=== PATIENT | female | born 1980 | race Caucasian/White ===

== ENCOUNTER → 2020-06-29 | Outpatient (CLI) | payer BC ==
--- NOTE | 2020-06-29 17:31 | CONS ---
CONSULTATION DATE OF SERVICE: 06/29/2020 A 39-year-old lady who came to sleep center for possible obstructive sleep apnea- hypopnea syndrome. HISTORY OF PRESENT ILLNESS/SLEEP-WAKE EVALUATION: Patient usual sleep schedule on working days from 12 midnight until 6:30 - 6:45 am and on weekends from 1 to 2 a.m. until 10 to 11 am. No problems with falling asleep. No TV in bedroom. The patient sleeps in different position with snoring and multiple awakenings from sleep up to 5 times with possible changes of the breathing during sleep. No nocturia. In the morning, the patient wakes up tired, has problems with memory, concentration, irritability. Marlow Sleepiness Scale is 6. The patient may take one nap around 4 pm, does not feel refreshed after nap. PAST MEDICAL HISTORY: Positive for hypertension, hyperlipidemia, episodes of migraine, depression, asthma of exercise. PAST SURGICAL HISTORY: None. MEDICATIONS: Sprintec, topiramate, Pristiq, , Imitrex, Ventolin. SOCIAL HISTORY: Negative for smoking. Alcohol consumption, occasional. REVIEW OF SYSTEMS: Awakenings from sleep, feeling tiredness during the day. PHYSICAL EXAM: lady without distress, BP 146/97, HR 84, RR 15, height 5 foot 5.5 inches, weight 260.4 pounds. Body mass index 42.6, temperature 98.0, oxygen saturation at room air 96%. OROPHARYNX: Low position of soft palate, Mallampati 3. ABDOMEN: Obese. NECK: Supple, no JVD. Thyroid is not palpable. LUNGS: Clear to percussion and to auscultation. Good air exchange. No wheezing or rhonchi. HEART: S1, S2 regular. No murmurs, gallops, or rubs. EXTREMITIES: No clubbing or cyanosis. COSMETIC MANAGER: Awake, alert, and oriented X3. Cranial nerves 2 to 7 intact. There is no fasciculation or atrophy. noted. No focal deficits observed. IMPRESSION: 1. Snoring, multiple awakenings from sleep, low position of soft palate, wide neck, obstructive sleep apnea-hypopnea syndrome. 2. Obesity, body mass index 42.6. 3. History of hypertension. 4. Hyperlipidemia. 5. Migraine. 6. Depression. 7. Exercise-induced asthma. PLAN: 1. Home sleep apnea test. 2. Polysomnography for evaluation of patient's breathing during sleep. 3. CPAP/BiPAP titration if sleep study confirms obstructive sleep apnea-hypopnea syndrome. 4. Preferable position during sleep on the side. 5. No driving if patient feels any sleepiness. 6. I will see patient for follow up visit to explain results of testing and following plan. Thank you very much for referring this patient for consultation. Sincerely, Olegario Garzon MD, PhD, FAASM Diplomat of [employer] [facility] [place] MMODL / IJN: [id number] /
== END | disposition home or self-care (01) ==
LOC: SLEEP 14:18
PROVIDERS: ATTEND Internal Medicine
DX: G47.33 Obstructive sleep apnea (adult) (pediatric) (principal); G43.909 Migraine, unspecified, not intractable, without status migrainosus; E66.9 Obesity, unspecified; E78.5 Hyperlipidemia, unspecified; F32.9 Major depressive disorder, single episode, unspecified; J45.990 Exercise induced bronchospasm
CPT/HCPCS: 99211

== ENCOUNTER → 2023-08-25 | Outpatient (CLI) | payer BC ==
--- NOTE | 2023-08-25 07:40 | US ---
EXAMINATION TYPE: US gallbladder DATE OF EXAM: 08/25/2023 COMPARISON: NONE CLINICAL INDICATION: Female, 42 years old with history of R10.11 RIGHT UPPER QUADRANT PAIN; Intermitt ent RUQ pain x 1 year TECHNIQUE: Multiple sonographic images of the right upper quadrant are obtained. FINDINGS: EXAM MEASUREMENTS: Liver Length: 17.7 cm Gallbladder Wall: 0.30 cm CBD: 0.80 cm Right Kidney: 11.1 x 4.8 x 4.7 cm Pancreas: wnl Liver: Increased echogenicity Gallbladder: MARGIE, wall echo shadow; multiple stones Evidence for sonographic Can's sign: No CBD: Dilated Right Kidney: wnl IMPRESSION: 1. Hepatic steatosis. 2. Extensive cholelithiasis filling the gallbladder lumen. 3. No obstructive uropathy.
== END | disposition home or self-care (01) ==
LOC: RADUSWWP 07:00
PROVIDERS: ATTEND Family Medicine
DX: K76.0 Fatty (change of) liver, not elsewhere classified (principal); K80.20 Calculus of gallbladder without cholecystitis without obstruction; R10.11 Right upper quadrant pain
CPT/HCPCS: 76705

== ENCOUNTER → 2023-11-25 | Outpatient (CLI) | payer BC ==
--- NOTE | 2023-11-25 07:50 | US ---
EXAMINATION TYPE: US gallbladder DATE OF EXAM: 11/25/2023 COMPARISON: And 2322 CLINICAL INDICATION: Female, 42 years old with history of CHOLELITHIASIS K80.80; Packed GB 08/25, mccurdy s been on medication and special diet to try to dissolve stones TECHNIQUE: Multiple sonographic images of the right upper quadrant are obtained. FINDINGS: EXAM MEASUREMENTS: Liver Length: 16.7 cm Gallbladder Wall: 0.2 cm CBD: 0.8 cm Right Kidney: 9.9x5.1x5.6 cm NUISANCE WILDLIFE SPECIALIST NOTES: Pancreas: Tail obscured by overlying bowel gas Liver: upper limits Gallbladder: MARGIE sign, GB packed with stones, there does not appear to be any reduction in stone bur den Evidence for sonographic Can's sign: No CBD: shotgun sign, dilated Right Kidney: No hydronephrosis or masses seen exam limited by bowel and body habitus IMPRESSION: Gallbladder filled with gallstones. No obvious difference from prior ultrasound.
== END | disposition home or self-care (01) ==
LOC: RADUSWWP 07:04
PROVIDERS: ATTEND Family Medicine
DX: K80.80 Other cholelithiasis without obstruction (principal)
CPT/HCPCS: 76705

== ENCOUNTER 2024-01-13 23:50 | Observation (INO) | payer BC ==
--- NOTE | 2024-01-14 01:14 | ED ---
General Adult HPI - General Chief complaint: Abdominal Pain Stated complaint: ABD Pain Time Seen by Provider: 01/14/24 00:10 Source: patient, RN notes reviewed, old records reviewed Mode of arrival: ambulatory Limitations: no limitations - History of Present Illness Initial comments: 43-year-old female presenting for evaluation of right-sided and epigastric abdominal pain. Patient states she has known history of gallstones. She is awaiting a surgical evaluation regarding this. Patient states that today for lunch she had pizza and ice cream and several hours later developed epigastric and right upper quadrant pain. No fever. She has had nausea without vomiting. - Related Data Allergies Allergy/AdvReac Type Severity Reaction Status Date / Time cephalexin [From Keflex] AdvReac Rash/Hives Verified 01/14/24 00:08 Sulfa (Sulfonamide AdvReac Rash/Hives Verified 01/14/24 00:08 Antibiotics) Review of Systems ROS Statement: Those systems with pertinent positive or pertinent negative responses have been documented in the HPI. ROS Other: All systems not noted in ROS Statement are negative. Past Medical History Past Medical History: Asthma History of Any Multi-Drug Resistant Organisms: None Reported Past Surgical History: No Surgical Hx Reported Past Psychological History: Depression Smoking Status: Never smoker Past Alcohol Use History: Rare Past Drug Use History: None Reported General Exam Limitations: no limitations General appearance: alert, in no apparent distress Head exam: Present: atraumatic, normocephalic Eye exam: Present: normal appearance, PERRL ENT exam: Present: normal exam Neck exam: Present: normal inspection. Absent: tenderness, meningismus Respiratory exam: Present: normal lung sounds bilaterally. Absent: respiratory distress, wheezes Cardiovascular Exam: Present: regular rate, normal rhythm GI/Abdominal exam: Present: soft, tenderness (Epigastric and right upper quadrant). Absent: distended Extremities exam: Present: normal inspection, normal capillary refill. Absent: pedal edema Neurological exam: Present: alert, oriented X3, CN II-XII intact Psychiatric exam: Present: normal affect, normal mood Skin exam: Present: warm Course Vital Signs 01/14/24 00:06 Temperature 97.7 F Pulse Rate 71 Respiratory 18 Rate Blood Pressure 157/98 O2 Sat by Pulse 100 Oximetry Medical Decision Making - Medical Decision Making Was pt. sent in by a medical professional or institution (, PA, LIGHTOUT EXAMINER, urgent care, hospital, or skilled nursing...) When possible be specific @ -No Did you speak to anyone other than the patient for history (EMS, parent, family, police, friend...)? What history was obtained from this source @ -No Did you review nursing and triage notes (agree or disagree)? Why? @ -I reviewed and agree with nursing and triage notes Were old charts reviewed (outside hosp., previous admission, EMS record, old EKG, old radiological studies, urgent care reports/EKG's, skilled nursing records)? Report findings @ -No old charts were reviewed Differential Diagnosis (chest pain, altered mental status, abdominal pain women, abdominal pain men, vaginal bleeding, weakness, fever, dyspnea, syncope, headache, dizziness, GI bleed, back pain, seizure, CVA, palpatations, mental health, musculoskeletal)? @Differential Abdominal Pain Women: Appendicitis, Cholecystitis, diverticulosis, ischemic bowel, pancreatitis, hepatitis, UTI, gastroenteritis, AAA, incarcerated hernia, bowel obstruction, constipation, inflammatory bowel, hepatitis, peptic ulcer disease, splenic infarction, perforated viscus, vulvitis, ovarian torsion, PID, kidney stone, placenta abruption, this is not meant to be an all-inclusive list EKG interpreted by me (3pts min.). @ -As above X-rays interpreted by me (1pt min.). @ -None done CT interpreted by me (1pt min.). @ -None done U/S interpreted by me (1pt. min.). @ -[Ultrasound right upper quadrant shows multiple gallstones, pericholecystic fluid, thickened gallbladder wall. What testing was considered but not performed or refused? (CT, X-rays, U/S, labs)? Why? @ -None What meds were considered but not given or refused? Why? @ -None Did you discuss the management of the patient with other professionals (professionals i.e. , PA, LIGHTOUT EXAMINER, lab, RT, psych nurse, group social worker, install and repair technician, teacher, security patrol officer, caseworker intake)? Give summary @ -Dr. Espino Was smoking cessation discussed for >3mins.? @ -No Was critical care preformed (if so, how long)? @ -No Were there social determinants of health that impacted care today? How? (Homelessness, low income, unemployed, alcoholism, drug addiction, transportation, low edu. Level, literacy, decrease access to med. care, long-term, rehab)? @ -No Was there de-escalation of care discussed even if they declined (Discuss DNR or withdrawal of care, Hospice)? DNR status @ -No What co-morbidities impacted this encounter? (DM, HTN, Smoking, COPD, CAD, Canc er, CVA, ARF, Chemo, Hep., AIDS, mental health diagnosis, sleep apnea, morbid obesity)? @ -None Was patient admitted / discharged? Hospital course, mention meds given and route, prescriptions, significant lab abnormalities, going to OR and other pertinent info. @ -43-year-old female with known gallstones presenting with right upper quadrant pain. Patient is afebrile with stable vitals. She has epigastric and right upper quadrant tenderness on exam. Ultrasound shows multiple gallstones, pericholecystic fluid and gallbladder wall thickening consistent with acute cholecystitis. She has a normal CBC without leukocytosis. Normal CMP, normal liver enzymes, normal bilirubin, negative lipase. Patient started on antibiotics in the emergency department. She will be admitted for surgical man agement of acute cholecystitis. Undiagnosed new problem with uncertain prognosis? @ -No Drug Therapy requiring intensive monitoring for toxicity (Heparin, Nitro, Insulin, Cardizem)? @ -No Were any procedures done? @ -No Diagnosis/symptom? @ -Acute cholecystitis Acute, or Chronic, or Acute on Chronic? @ -[Acute Uncomplicated (without systemic symptoms) or Complicated (systemic symptoms)? @ -Complicated Side effects of treatment? @ -[No Exacerbation, Progression, or Severe Exacerbation? @ -No Poses a threat to life or bodily function? How? (Chest pain, [place], [place], pneumonia, PE, COPD, DKA, ARF, appy, cholecystitis, CVA, Diverticulitis, Homicidal, Suicidal, threat to staff... and all critical care pts) @ -Yes, sepsis - Lab Data Result diagrams: 01/14/24 01:17 01/14/24 01:17 Lab Results 01/14/24 01/14/24 01/14/24 Range/Units 01:17 01:17 01:17 WBC 9.2 (3.8-10.6) k/uL RBC 4.83 (3.80-5.40) m/uL Hgb 14.3 (11.4-16.0) gm/dL Hct 43.6 (34.0-46.0) % MCV 90.1 (80.0-100.0) fL MCH 29.5 (25.0-35.0) pg MCHC 32.8 (31.0-37.0) g/dL RDW 12.6 (11.5-15.5) % Plt Count 313 (150-450) k/uL MPV 7.8 Neutrophils % 73 % Lymphocytes % 22 % Monocytes % 3 % Eosinophils % 1 % Basophils % 1 % Neutrophils # 6.7 (1.3-7.7) k/uL Lymphocytes # 2.0 (1.0-4.8) k/uL Monocytes # 0.3 (0-1.0) k/uL Eosinophils # 0.1 (0-0.7) k/uL Basophils # 0.1 (0-0.2) k/uL PT 9.9 L (10.0-12.5) sec INR 0.9 (<1.2) APTT 26.0 (22.0-30.0) sec Sodium (137-145) mmol/L Potassium (3.5-5.1) mmol/L Chloride (98-107) mmol/L Carbon Dioxide (22-30) mmol/L Anion Gap mmol/L BUN (7-17) mg/dL Creatinine (0.52-1.04) mg/dL Est GFR (CKD-EPI)AfAm (>60 ml/min/1.73 sqM) Est GFR (CKD-EPI)NonAf (>60 ml/min/1.73 sqM) Glucose (74-99) mg/dL Plasma Lactic Acid Jacques (0.7-2.0) mmol/L Calcium (8.4-10.2) mg/dL Total Bilirubin (0.2-1.3) mg/dL AST (14-36) U/L ALT (4-34) U/L Alkaline Phosphatase (38-126) U/L Total Protein (6.3-8.2) g/dL Albumin (3.5-5.0) g/dL Amylase (30-110) U/L Lipase (23-300) U/L Urine Color Colorless Urine Appearance Turbid H (Clear) Urine pH 7.5 (5.0-8.0) Ur Specific [place] 1.019 (1.001-1.035) Urine Protein Negative (Negative) Urine Glucose (UA) Negative (Negative) Urine Ketones 1+ H (Negative) Urine Blood Negative (Negative) Urine Nitrite Negative (Negative) Urine Bilirubin Negative (Negative) Urine Urobilinogen <2.0 (<2.0) mg/dL Ur Leukocyte Esterase Negative (Negative) Urine RBC 2 (0-5) /hpf Urine WBC 1 (0-5) /hpf Ur Squamous Epith Cells 3 (0-4) /hpf Amorphous Sediment Moderate H (None) /hpf Urine Mucus Rare H (None) /hpf 01/14/24 01/14/24 Range/Units 01:17 01:17 WBC (3.8-10.6) k/uL RBC (3.80-5.40) m/uL Hgb (11.4-16.0) gm/dL Hct (34.0-46.0) % MCV (80.0-100.0) fL MCH (25.0-35.0) pg MCHC (31.0-37.0) g/dL RDW (11.5-15.5) % Plt Count (150-450) k/uL MPV Neutrophils % % Lymphocytes % % Monocytes % % Eosinophils % % Basophils % % Neutrophils # (1.3-7.7) k/uL Lymphocytes # (1.0-4.8) k/uL Monocytes # (0-1.0) k/uL Eosinophils # (0-0.7) k/uL Basophils # (0-0.2) k/uL PT (10.0-12.5) sec INR (<1.2) APTT (22.0-30.0) sec Sodium 136 L (137-145) mmol/L Potassium 4.0 (3.5-5.1) mmol/L Chloride 104 (98-107) mmol/L Carbon Dioxide 21 L (22-30) mmol/L Anion Gap 11 mmol/L BUN 11 (7-17) mg/dL Creatinine 0.76 (0.52-1.04) mg/dL Est GFR (CKD-EPI)AfAm >90 (>60 ml/min/1.73 sqM) Est GFR (CKD-EPI)NonAf >90 (>60 ml/min/1.73 sqM) Glucose 119 H (74-99) mg/dL Plasma Lactic Acid Jacques 1.8 (0.7-2.0) mmol/L Calcium 9.2 (8.4-10.2) mg/dL Total Bilirubin 0.4 (0.2-1.3) mg/dL AST 27 (14-36) U/L ALT 18 (4-34) U/L Alkaline Phosphatase 89 (38-126) U/L Total Protein 7.2 (6.3-8.2) g/dL Albumin 4.2 (3.5-5.0) g/dL Amylase 62 (30-110) U/L Lipase 102 (23-300) U/L Urine Color Urine Appearance (Clear) Urine pH (5.0-8.0) Ur Specific [place] (1.001-1.035) Urine Protein (Negative) Urine Glucose (UA) (Negative) Urine Ketones (Negative) Urine Blood (Negative) Urine Nitrite (Negative) Urine Bilirubin (Negative) Urine Urobilinogen (<2.0) mg/dL Ur Leukocyte Esterase (Negative) Urine RBC (0-5) /hpf Urine WBC (0-5) /hpf Ur Squamous Epith Cells (0-4) /hpf Amorphous Sediment (None) /hpf Urine Mucus (None) /hpf Disposition Clinical Impression: Acute cholecystitis Disposition: ADMITTED IP TO THIS HOSP Condition: Stable Is patient prescribed a controlled substance at d/c from ED?: No Referrals: Jamee Anders MD [Primary Care Provider] - 1-2 days Time of Disposition: 02:02
[2024-01-14] MEDS: ONDANSETRON 4 MG/2 ML VIAL IVP STA (01:20)
[2024-01-14] MEDS: HYDROmorphone 0.5 MG/0.5 ML SYRINGE IVP STA ×2 (01:20→02:08)
[2024-01-14] MEDS: SODIUM CHLORIDE 0.9% 1,000 ML IV STA (01:24)
--- NOTE | 2024-01-14 01:30 | US ---
EXAMINATION TYPE: US gallbladder DATE OF EXAM: 01/14/2024 COMPARISON: 11/25/23 gallbladder ultrasound CLINICAL INDICATION: Female, 43 years old with history of RUQ pain; RUQ pain x 5 hours. Hx of gallsto carolyn TECHNIQUE: Multiple sonographic images of the right upper quadrant are obtained. FINDINGS: EXAM MEASUREMENTS: Liver Length: 16.2 cm Gallbladder Wall: 1.0 cm CBD: 0.8 cm Right Kidney: 10.1 x 5.3 x 4.8 cm COGNOS CONSULTANT NOTES: Pancreas: wnl Liver: Heterogeneous Gallbladder: Multiple gallstones seen, hydropic, thickened wall with pericholecystic fluid seen Evidence for sonographic Can's sign: Yes CBD: Possibly dilated Right Kidney: wnl IMPRESSION: Gallstone is redemonstrated. Secondary findings to suggest acute cholecystitis are now present as det noel above. Advise surgical evaluation.
[2024-01-14 01:48] LABS: Amorphous Sediment,Urine Moderate /hpf; Appearance,Urine Turbid (Clear); Bilirubin,Urine Negative (Negative); Blood,Urine Negative (Negative); Color,Urine Colorless; Glucose,Urine (UA) Negative (Negative); Ketones,Urine 1+ (Negative); Leukocyte Esterase,Urine Negative (Negative); Mucus,Urine Rare /hpf; Nitrite,Urine Negative (Negative); PH, Urine 7.5 (5.0-8.0); Protein,Urine Negative (Negative); RBC,Urine 2 /hpf (0-5); Specific Gravity,Urine 1.019 (1.001-1.035); Squamous Epithelial Cell,Urine 3 /hpf (0-4); Urobilinogen,Urine <2.0 mg/dL (<2.0); WBC,Urine 1 /hpf (0-5)
[2024-01-14 01:52] LABS: Basophils # (A) 0.1 k/uL (0-0.2); Basophils % (A) 1 %; Eosinophils # (A) 0.1 k/uL (0-0.7); Eosinophils % (A) 1 %; HCT 43.6 % (34.0-46.0); HGB 14.3 gm/dL (11.4-16.0); Lymphocytes % (A) 22 %; MCH 29.5 pg (25.0-35.0); MCHC 32.8 g/dL (31.0-37.0); MCV 90.1 fL (80.0-100.0); Mean Platelet Volume 7.8; Monocytes # (A) 0.3 k/uL (0-1.0); Monocytes % (A) 3 %; Neutrophils # (A) 6.7 k/uL (1.3-7.7); Neutrophils % (A) 73 %; Platelet Count 313 k/uL (150-450); RBC 4.83 m/uL (3.80-5.40); RDW 12.6 % (11.5-15.5); WBC 9.2 k/uL (3.8-10.6)
[2024-01-14 01:55] LABS: ALT 18 U/L (4-34); AST 27 U/L (14-36); African American GFR (CKD) >90 (>60 ml/min/1.73 sqM); Albumin 4.2 g/dL (3.5-5.0); Alkaline Phosphatase 89 U/L (38-126); Amylase 62 U/L (30-110); Anion Gap 11 mmol/L; Blood Urea Nitrogen 11 mg/dL (7-17); Calcium 9.2 mg/dL (8.4-10.2); Carbon Dioxide 21 mmol/L (22-30); Chloride 104 mmol/L (98-107); Glucose 119 mg/dL (74-99); Lipase 102 U/L (23-300); Non-African American GFR(CKD) >90 (>60 ml/min/1.73 sqM); Sodium 136 mmol/L (137-145); Total Bilirubin 0.4 mg/dL (0.2-1.3); Total Protein 7.2 g/dL (6.3-8.2)
[2024-01-14 01:57] LABS: INR 0.9 (<1.2); Prothrombin Time 9.9 sec (10.0-12.5)
[2024-01-14] MEDS ORDERED: NALOXONE 0.4 MG/ML 1 ML VIAL IV PRN (01:58)
[2024-01-14] MEDS: PIPERACILLIN-TAZOBACTAM 3.375 GM in SODIUM CHLORIDE 0.9% 100 ML IVPB SCH (02:07)
[2024-01-14] MEDS: SODIUM CHLORIDE 0.9% 1,000 ML IV SCH (02:07)
[2024-01-14] MEDS: HYDROmorphone 1 MG/ML 1 ML SYRINGE IVP PRN (05:03)
--- NOTE | 2024-01-14 11:34 | P.GSHP ---
History of Present Illness H&P Date: 01/14/24 CHIEF COMPLAINT: Abdominal pain HISTORY OF PRESENT ILLNESS: This is a 43-year-old female with a known history of gallstones. She has been dealing with gallstones for about 5 months. Last night the pain became very severe around 5:00 PM. Patient reports eating pizza and ice cream at lunch. And then later in the evening she had severe epigastric right upper quadrant pain that moved towards the back. She did have an episode of vomiting. Denies any fever chills or sweats. Denies any past abdominal surgical history. Denies any cardiac history. Gallbladder ultrasound had shown evidence of cholelithiasis thickened gallbladder wall pericholecystic fluid and positive Can sign. Patient mid to the hospital with acute cholecystitis. PAST MEDICAL HISTORY: Exercise-induced asthma PAST SURGICAL HISTORY: none MEDICATIONS: See below ALLERGIES: See below SOCIAL HISTORY: No illicit drug use. REVIEW OF SYSTEMS: CONSTITUTIONAL: Denies fever or chills. HEENT: Denies blurred vision, vision changes, or eye pain. Denies hemoptysis CARDIOVASCULAR: Denies chest pain or pressure. RESPIRATORY: No shortness of breath. GASTROINTESTINAL: See HPI for pertinent findings HEMATOLOGIC: Denies bleeding disorders. GENITOURINARY: Denies any blood in urine or increased urinary frequency. SKIN: Denies pruitis. Denies rash. PHYSICAL EXAM: VITAL SIGNS: Reviewed GENERAL: Well-developed in no acute distress. HEENT: No sclera icterus. Extraocular movements grossly intact. Moist buccal mucosa. Head is atraumatic, normocephalic. No nasal drainage. ABDOMEN: Soft. Nondistended. Tenderness to palpation right upper quadrant NEUROLOGIC: Alert and oriented. Cranial nerves II through XII grossly intact. LABORATORY DATA: W BC 9.2 Hgb 14.3 platelets 313 INR 0.9 Sodium 136 potassium 4.0 creatinine 0.76 Lactic acid 1.8 LFTs normal Lipase 102 IMAGING: Gallbladder ultrasound reports gallstone. Secondary findings suggest acute cholecystitis are not present with multiple gallstones seen, hydropic gallbladder, thickened wall with pericholecystic fluid. Positive Can sign. Possibly dilated CBD ASSESSMENT: 1. Acute cholecystitis PLAN: -Patient scheduled for laparoscopic cholecystectomy tomorrow with Dr. Espino -Clear liquid diet today -NPO after midnight -Continue antibiotics -Continue pain management Physician International Trade Manager note has been reviewed by physician. Signing provider agrees with the documented findings, assessment, and plan of care. Past Medical History Past Medical History: Asthma, Hyperlipidemia History of Any Multi-Drug Resistant Organisms: None Reported Past Surgical History: No Surgical Hx Reported Past Anesthesia/Blood Transfusion Reactions: No Reported Reaction Past Psychological History: Depression Smoking Status: Never smoker Past Alcohol Use History: Rare Past Drug Use History: None Reported Medications and Allergies Home Medications Medication Instructions Recorded Confirmed Type Albuterol Sulfate [Ventolin HFA] 1 - 2 puff INHALATION RT-Q6H PRN 01/14/24 01/14/24 History Cyclobenzaprine [Flexeril] 10 mg PO TID PRN 01/14/24 01/14/24 History Desvenlafaxine Succinate [Pristiq] 100 mg PO DAILY 01/14/24 01/14/24 History Loratadine [Claritin] 10 mg PO DAILY 01/14/24 01/14/24 History Rizatriptan Odt [Maxalt Board Setter] 10 mg PO BID PRN 01/14/24 01/14/24 History SUMAtriptan succinate [Imitrex] 50 - 100 mg PO DAILY PRN 01/14/24 01/14/24 History Topiramate [Topamax] 100 mg PO HS 01/14/24 01/14/24 History hydrOXYzine HCL [Atarax] 50 mg PO HS 01/14/24 01/14/24 History norgestimate-ethinyl estradioL 1 tab PO HS 01/14/24 01/14/24 History [Sprintec 28 Day Tablet] ursodioL [Ursodiol] 500 mg PO BID 01/14/24 01/14/24 History Allergies Allergy/AdvReac Type Severity Reaction Status Date / Time cephalexin [From Keflex] Allergy Rash/Hives Verified 01/14/24 07:35 Sulfa (Sulfonamide Allergy Rash/Hives Verified 01/14/24 07:35 Antibiotics) sulfamethoxazole Allergy Rash/Hives Verified 01/14/24 07:35 [From Bactrim] trimethoprim [From Bactrim] Allergy Rash/Hives Verified 01/14/24 07:35 Surgical - Exam Vital Signs Temp Pulse Resp BP Pulse Ox 97.7 F 71 18 157/98 100 01/14/24 00:06 01/14/24 00:06 01/14/24 00:06 01/14/24 00:06 01/14/24 00:06 Results - Labs 01/14/24 01:17 01/14/24 01:17 Abnormal Lab Results - Last 24 Hours (Table) 01/14/24 01/14/24 01/14/24 Range/Units 01:17 01:17 01:17 PT 9.9 L (10.0-12.5) sec Sodium 136 L (137-145) mmol/L Carbon Dioxide 21 L (22-30) mmol/L Glucose 119 H (74-99) mg/dL Urine Appearance Turbid H (Clear) Urine Ketones 1+ H (Negative) Amorphous Sediment Moderate H (None) /hpf Urine Mucus Rare H (None) /hpf Diabetes panel 01/14/24 Range/Units 01:17 Sodium 136 L (137-145) mmol/L Potassium 4.0 (3.5-5.1) mmol/L Chloride 104 (98-107) mmol/L Carbon Dioxide 21 L (22-30) mmol/L BUN 11 (7-17) mg/dL Creatinine 0.76 (0.52-1.04) mg/dL Glucose 119 H (74-99) mg/dL Calcium 9.2 (8.4-10.2) mg/dL AST 27 (14-36) U/L ALT 18 (4-34) U/L Alkaline Phosphatase 89 (38-126) U/L Total Protein 7.2 (6.3-8.2) g/dL Albumin 4.2 (3.5-5.0) g/dL Calcium panel 01/14/24 Range/Units 01:17 Calcium 9.2 (8.4-10.2) mg/dL Albumin 4.2 (3.5-5.0) g/dL Pituitary panel 01/14/24 Range/Units 01:17 Sodium 136 L (137-145) mmol/L Potassium 4.0 (3.5-5.1) mmol/L Chloride 104 (98-107) mmol/L Carbon Dioxide 21 L (22-30) mmol/L BUN 11 (7-17) mg/dL Creatinine 0.76 (0.52-1.04) mg/dL Glucose 119 H (74-99) mg/dL Calcium 9.2 (8.4-10.2) mg/dL Adrenal panel 01/14/24 Range/Units 01:17 Sodium 136 L (137-145) mmol/L Potassium 4.0 (3.5-5.1) mmol/L Chloride 104 (98-107) mmol/L Carbon Dioxide 21 L (22-30) mmol/L BUN 11 (7-17) mg/dL Creatinine 0.76 (0.52-1.04) mg/dL Glucose 119 H (74-99) mg/dL Calcium 9.2 (8.4-10.2) mg/dL Total Bilirubin 0.4 (0.2-1.3) mg/dL AST 27 (14-36) U/L ALT 18 (4-34) U/L Alkaline Phosphatase 89 (38-126) U/L Total Protein 7.2 (6.3-8.2) g/dL Albumin 4.2 (3.5-5.0) g/dL
[2024-01-14] MEDS: HYDROmorphone 0.5 MG/0.5 ML SYRINGE IVP PRN (16:32)
[2024-01-14] MEDS: ACETAMINOPHEN TAB 500 MG TAB PO PRN (20:32)
[2024-01-15] MEDS: ONDANSETRON 4 MG/2 ML VIAL IVP PRN (02:15)
[2024-01-15] MEDS ORDERED: MIDAZOLAM 2 MG/2 ML VIAL IV PRN (07:21)
[2024-01-15] MEDS ORDERED: LIDOCAINE 1% (10MG/ML) FOR IV START INTRADERMA PRN (07:21)
[2024-01-15 07:32] LABS: Basophils % (A) 1 %; Eosinophils # (A) 0.1 k/uL (0-0.7); Eosinophils % (A) 1 %; HCT 41.4 % (34.0-46.0); HGB 13.4 gm/dL (11.4-16.0); Lymphocytes # (A) 2.2 k/uL (1.0-4.8); Lymphocytes % (A) 31 %; MCH 29.4 pg (25.0-35.0); MCHC 32.5 g/dL (31.0-37.0); MCV 90.7 fL (80.0-100.0); Mean Platelet Volume 7.9; Monocytes # (A) 0.3 k/uL (0-1.0); Monocytes % (A) 4 %; Neutrophils # (A) 4.3 k/uL (1.3-7.7); Neutrophils % (A) 61 %; Platelet Count 310 k/uL (150-450); RBC 4.57 m/uL (3.80-5.40)
[2024-01-15 07:47] LABS: ALT 14 U/L (4-34); AST 21 U/L (14-36); African American GFR (CKD) >90 (>60 ml/min/1.73 sqM); Albumin 3.3 g/dL (3.5-5.0); Albumin/Globulin Ratio 1.2; Alkaline Phosphatase 71 U/L (38-126); Anion Gap 8 mmol/L; Blood Urea Nitrogen 6 mg/dL (7-17); Calcium 8.3 mg/dL (8.4-10.2); Carbon Dioxide 22 mmol/L (22-30); Chloride 108 mmol/L (98-107); Globulin 2.8 g/dL; Glucose 111 mg/dL (74-99); Non-African American GFR(CKD) >90 (>60 ml/min/1.73 sqM); Potassium 4.5 mmol/L (3.5-5.1); Sodium 138 mmol/L (137-145); Total Bilirubin 0.5 mg/dL (0.2-1.3); Total Protein 6.1 g/dL (6.3-8.2)
[2024-01-15] MEDS: LACTATED RINGERS 1,000 ML IV SCH (08:53)
[2024-01-15] MEDS: IV FLUID CONTINUATION 1,000 ML IV ONE (09:11)
[2024-01-15] MEDS: diphenhydrAMINE 50 MG/ML 1 ML VIAL IVP ONE (09:20)
[2024-01-15] MEDS: DEXAMETHASONE SOD PHOSPHATE 4 MG/ML 1 ML VIAL IVP ONE (09:20)
[2024-01-15] MEDS: ONDANSETRON 4 MG/2 ML VIAL IVP ONE ×2 (09:20→10:19)
[2024-01-15] MEDS: SCOPOLAMINE 1 MG/72 HR PATCH TRANSDERM ONE (09:20)
[2024-01-15] MEDS ORDERED: diphenhydrAMINE 50 MG/ML 1 ML VIAL ONE (09:22)
[2024-01-15] MEDS: LIDOCAINE 2%-EPI 1:100,000 20 ML VIAL SQ ONE ×2 (09:33→09:52)
[2024-01-15] MEDS ORDERED: NEOSTIGMINE 1 MG/ML 10 ML VIAL ONE (09:34)
[2024-01-15] MEDS ORDERED: PROPOFOL 10 MG/ML 20 ML VIAL IV ONE (09:34)
[2024-01-15] MEDS ORDERED: MIDAZOLAM 2 MG/2 ML VIAL ONE (09:34)
[2024-01-15] MEDS ORDERED: fentaNYL (PF) 50 MCG/ML 2 ML AMP ONE (09:34)
[2024-01-15] MEDS ORDERED: SUCCINYLCHOLINE CHLORIDE 200 MG/10 ML VIAL IV ONE (09:34)
[2024-01-15] MEDS ORDERED: GLYCOPYRROLATE 0.2 MG/ML 2 ML VIAL ONE (09:34)
[2024-01-15] MEDS ORDERED: ROCURONIUM 10 MG/ML (5 ML VIAL) IV ONE (09:34)
[2024-01-15] MEDS ORDERED: HYDROmorphone (PF) 1 MG/ML ONE (09:34)
[2024-01-15] MEDS ORDERED: LIDOCAINE 1% INJ 10MG/ML (20 ML MDV) ONE (09:34)
[2024-01-15] MEDS: LACTATED RINGERS 1,000 ML IV ONE (10:16)
[2024-01-15] MEDS: DEXAMETHASONE SOD PHOSPHATE 4 MG/ML 1 ML VIAL IV ONE (10:19)
--- NOTE | 2024-01-15 10:32 | P.OP ---
Date of Procedure: 01/15/24 Preoperative Diagnosis: Acute cholecystitis Postoperative Diagnosis: Acute cholecystitis Procedure(s) Performed: Laparoscopic cholecystectomy Anesthesia: RADHA Surgeon: Saul Espino Estimated Blood Loss (ml): 5 Pathology: other (Gallbladder) Condition: stable Disposition: PACU Description of Procedure: The patient was placed on the operating table. The patient received a general endotracheal tube anesthesia. The patients abdomen was prepped and draped in the usual sterile fashion. Through an infraumbilical stab incision, the fascia of the anterior abdominal wall was grasped with a pair of Kochers and then the Veress needle was placed in the peritoneal cavity. Position of the Veress needle was confirmed with positive drop test. The abdomen was then insufflated. After adequate insufflation, the 10 mm trocar was placed in the peritoneal cavity. Following this the laparoscope was placed in the peritoneal cavity. The patient was placed in the head-up, right side up position and then a 5 mm trocar was placed in the right lateral and right subcostal position under direct visualization. A 8 mm trocar was placed in the epigastric position. The gallbladder was grasped in the fundus and infundibulum. Traction on the gallbladder was placed in the lateral and the cephalad positions. The triangle of Calot was visualized.. The cystic duct was bluntly dissected until the union of the cystic duct and common bile duct was seen. A critical view of safety was achieved. The cystic duct was then divided and sealed with the Harmonic scissors. A PDS Endoloop was then placed throughout the cystic duct stump. The cystic artery divided and sealed with the Harmonic scissors. The gallbladder was then removed from the liver bed using Harmonic scissors. The gallbladder was then extracted through the epigastric port site. Operative field was checked for any bleeding spots and Harmonic scissors was used to coagulate the liver bed. The abdomen was irrigated. The trocars were removed. The skin was closed using interrupted 3-0 Vicryl suture. Dermabond dressing were applied. The patient tolerated the procedure well.
[2024-01-15] MEDS: HYDROmorphone 0.5 MG/0.5 ML SYRINGE IVP PRN (11:18)
[2024-01-16] MEDS: ENOXAPARIN 40 MG/0.4 ML SYRINGE SQ SCH (08:49)
[2024-01-16] MEDS: HYDROcodone/APAP 5-325MG 1 EACH TAB PO PRN (09:01)
[2024-01-16 09:11] VITALS: BP 120/76; PULSE 91; RESP 18; TEMP 98.9
--- NOTE | 2024-01-16 12:27 | P.DS ---
Providers Date of admission: 01/14/24 01:59 Expected date of discharge: 01/16/24 Attending physician: Saul Espino Primary care physician: Jamee Anders Hospital Course: Discharge diagnosis 1. Acute cholecystitis Hospital course This is a 43-year-old female who presented with right upper quadrant abdominal pain. Gallbladder ultrasound had shown evidence of cholelithiasis thickened gallbladder wall pericholecystic fluid and positive Can sign. Patient is status post laparoscopic cholecystectomy for acute cholecystitis. Patient tolerated surgery well. Pain is controlled. She is tolerating diet. She is afebrile. She has been up and ambulating. She is having flatus. She denies any difficulty urinating. She is stable for discharge. Please refer to chart for any further details. Physician Technical Associate note has been reviewed by physician. Signing provider agrees with the documented findings, assessment, and plan of care. Patient Condition at Discharge: Stable Plan - Discharge Summary Discharge Rx Participant: Yes New Discharge Prescriptions: New HYDROcodone/APAP 5-325MG [Inez 5-325] 1 tab PO Q6HR PRN 3 Days #12 tab PRN Reason: Pain Continue Topiramate [Topamax] 100 mg PO HS Desvenlafaxine Succinate [Pristiq] 100 mg PO DAILY Cyclobenzaprine [Flexeril] 10 mg PO TID PRN PRN Reason: Muscle Spasm norgestimate-ethinyl estradioL [Sprintec 28 Day Tablet] 1 tab PO HS Albuterol Sulfate [Ventolin HFA] 1 - 2 puff INHALATION RT-Q6H PRN PRN Reason: Shortness Of Breath Loratadine [Claritin] 10 mg PO DAILY hydrOXYzine HCL [Atarax] 50 mg PO HS SUMAtriptan succinate [Imitrex] 50 - 100 mg PO DAILY PRN PRN Reason: Migraine Headache Rizatriptan Odt [Maxalt FOUNT[employer] CLERK] 10 mg PO BID PRN PRN Reason: Migraine Headache Discontinued ursodioL [Ursodiol] 500 mg PO BID Discharge Medication List Albuterol Sulfate [Ventolin HFA] 1 - 2 puff INHALATION RT-Q6H PRN 01/14/24 [History] Cyclobenzaprine [Flexeril] 10 mg PO TID PRN 01/14/24 [History] Desvenlafaxine Succinate [Pristiq] 100 mg PO DAILY 01/14/24 [History] Loratadine [Claritin] 10 mg PO DAILY 01/14/24 [History] Rizatriptan Odt [Maxalt [employer]OUNT[employer] CLERK] 10 mg PO BID PRN 01/14/24 [History] SUMAtriptan succinate [Imitrex] 50 - 100 mg PO DAILY PRN 01/14/24 [History] Topiramate [Topamax] 100 mg PO HS 01/14/24 [History] hydrOXYzine HCL [Atarax] 50 mg PO HS 01/14/24 [History] norgestimate-ethinyl estradioL [Sprintec 28 Day Tablet] 1 tab PO HS 01/14/24 [History] HYDROcodone/APAP 5-325MG [Inez 5-325] 1 tab PO Q6HR PRN 3 Days #12 tab 01/16/24 [Rx] Follow up Appointment(s)/Referral(s): Jamee Anders MD [Primary Care Provider] - 1-2 days Saul Espino MD [STAFF PHYSICIAN] - 1 Week Activity/Diet/Wound Care/Special Instructions: No driving while taking Inez No lifting over 10 pounds shower daily. No soaking or tub baths for 2 weeks Very light activity until you are reevaluated at your follow up appointment with your surgeon Discharge Disposition: HOME SELF-CARE
== END 2024-01-16 14:51 | disposition home or self-care (01) ==
LOC: EC 23:50 → INTOOBSV 01-14 01:59 → 4SSUR 01-14 01:59
PROVIDERS: ADMIT Surgery; ATTEND Surgery
DX: K80.00 Calculus of gallbladder with acute cholecystitis without obstruction (principal); F32.A Depression, unspecified; E78.5 Hyperlipidemia, unspecified; Z79.899 Other long term (current) drug therapy; Z88.1 Allergy status to other antibiotic agents; Z88.2 Allergy status to sulfonamides
CPT/HCPCS: 47562; 96376 ×4; 96361; 96365; 96366 ×3; 96372; 96375; 99285; 36415; 81025 ×2; 88304; 80053 ×2; 82150; 83605; 83690; 85025 ×2; 85610; 85730; 81001; 87040; 76705; G0378 ×3; J2543 ×3; J2250; J0330; J1200; J1100; J2710; J2405 ×2; J2001; J1650; J3010; J1170 ×5; J2704